=== PATIENT | male | born 1940 | race Caucasian/White ===

== ENCOUNTER 2016-12-23 08:59 | Day surgery (SDC) | payer MEDICARE, OTHER ==
[~2016-12-23 08:59] MED LIST: NACL 0.9% 1000 ML 1,000 ML IV SCH
--- NOTE | 2016-12-23 09:42 | Anesthesia Consultation ---
Anesthesia Consult and Med Hx Date of service: 12/23/16 - Airway Anesthetic Teeth Evaluation: Good (8 missing teeth in total), Chipped (one bottom front) ROM Head & Neck: Adequate Mental/Hyoid Distance: Adequate Mallampati Class: Class I Intubation Access Assessment: Probably Good - Pulmonary Exam CTA: Yes - Cardiac Exam Cardiac Exam: RRR - Pre-Operative Health Status ASA Pre-Surgery Classification: ASA3 Proposed Anesthetic Plan: MAC - Pulmonary Hx Smoking: Yes (stopped one year ago) Hx Asthma: Yes (inhaler as needed. Last used 3 months ago) - Cardiovascular System Hx Hypertension: Yes Hx Coronary Artery Disease: Yes (stent x4, 2 open heart surgery) - Central Nervous System Hx Seizures: Yes - Additional Comments Anesthesia Medical History Comments: h/o passing out. After passing out cracked skull and had piece of bone removed for 3 months. Plate in front of neck from neck surgery, ROM good. can extend neck well but not too far back.
--- NOTE | 2016-12-23 09:43 | Anesthesia Day of Surgery ---
Anesthesia Day of Surgery - Day of Surgery Patient Examined: Yes Patient H&P Reviewed: Yes Patient is NPO: Yes
[2016-12-23] MEDS ORDERED: WATER FOR IRRIG STERILE IR ONE (12:03)
[2016-12-23] MEDS ORDERED: WATER FOR IRRIG STERILE ONE (12:03)
[2016-12-23] MEDS ORDERED: AMIDATE IV ONE (12:04)
--- NOTE | 2016-12-23 12:47 | Short Stay Summary ---
Short Stay Documentation Date of service: 12/23/16 Narrative H&P: The patient presents for high risk screening colonoscopy due to a personal history of colon polyps. Last study was 10 years ago. - History Past Medical History: arthritis, hypertension, other (CHF, asthma) Past Surgical History: CABG, Other (joint surgeries, CABD) Social history: no significant social history - Allergies and Medications Current Medications: Allergies No Known Allergies Allergy (Verified 12/23/16 07:44) Home Medications Medication Instructions Recorded Confirmed Last Taken Type ALBUTEROL Inhaler 2 puff Q6HR PRN 12/23/16 12/23/16 12/22/16 History Ascorbic Acid/Ascorbate Ca 1 PO DAILY 12/23/16 12/22/16 History Aspirin [Adult Low Dose Aspirin EC] 1 tab PO DAILY 12/23/16 12/23/16 12/22/16 History Atrovent 0.03% NASAL 2 spray INNOSTRIL TID 12/23/16 12/23/16 12/22/16 History Docusate Calcium 1 tab PO DAILY 12/23/16 12/23/16 12/22/16 History Folic Acid 1 tab PO DAILY 12/23/16 12/23/16 12/22/16 History Furosemide 1 tab PO DAILY 12/23/16 12/23/16 12/23/16 History HYDROcodone/ACETAMINOPHEN 1 tab PO Q6HR PRN 12/23/16 12/23/16 12/22/16 History Keppra TAB PO BID 12/23/16 12/23/16 History Lisinopril 1 tab PO DAILY 12/23/16 12/23/16 12/23/16 History Metoprolol Tartrate 1 tab PO BID 12/23/16 12/23/16 12/23/16 History Morphine 1 cap PO Q12HR 12/23/16 12/23/16 12/20/16 History Multivitamin Tab 1 tab PO DAILY 12/23/16 12/23/16 12/22/16 History Nortriptyline 1 tab PO HS 12/23/16 12/23/16 12/21/16 History Potassium Chloride 1 caplet PO DAILY 12/23/16 12/23/16 12/22/16 History Ranitidine HCl [Zantac 150 MG TAB] 1 tab PO DAILY 12/23/16 12/23/16 12/22/16 History Senna 1 tab PO DAILY 12/23/16 12/23/16 12/22/16 History Zocor TAB 1 tab PO DAILY 12/23/16 12/23/16 12/22/16 History traZODone 2 tab PO HS 12/23/16 12/23/16 12/22/16 History Active Medications Sodium Chloride (Nacl 0.9% 1000 Ml) 1,000 mls @ 50 mls/hr IV DIRECT IVÁN Last Admin: 12/23/16 10:43 Dose: 50 mls/hr - Physical exam General appearance: no acute distress, well-nourished Integumentary: no rash, no growths, no abnormal pigmentation HEENT: Atraumatic, PERRLA, EOMI, Mucous membr. moist/pink Lungs: Clear to auscultation, Normal air movement Breasts: deferred Heart: Regular rate, Normal S1, Normal S2, No murmurs Gastrointestinal: normoactive bowel sounds, tenderness, distended, organomegaly , no hepatomegaly, no splenomegaly, no obese Male Genitourinary: deferred Rectal Exam: normal exam-external/orifice, normal rectal tone, no mass Neurological: Normal gait, Normal speech, Strength at 5/5 X4 ext, Normal tone, Sensation intact, Cranial nerves 3-12 NL - Brief post op/procedure progress note Date of procedure: 12/23/16 Findings: see dictated report Estimated blood loss: none Pathology: list (small transverse polyp, 2 descending colon polyps) Specimen disposition: to lab Condition: stable - Disposition Condition at discharge: Good Disposition: DC-01 TO HOME OR SELFCARE - Discharge Diagnoses (1) History of colon polyps Status: Acute Short Stay Discharge Plan Activity: other (no driving for 24 hours. No ASA/NSAIDs or Plavix for 7 days.) Weight Bearing Status: Full Weight Bearing Diet: regular Follow up with: MIO OSBORNE MD [Primary Care Provider] - 7 Days
--- NOTE | 2016-12-23 12:54 | Operative Report ---
Operative Report Operative Report: Date of procedure: 12/23/2016 Preprocedure diagnosis: History of colon polyps. Last study 10 years ago. Post procedure diagnosis: [Diminutive transverse colon polyp, 2 small descending colon polyps] Procedure: Colonoscopy to the cecum with cold forceps polypectomy of the transverse lesion and hot snare polypectomies of the descending colon polyps Endoscopist: Dr. Choudhary Anesthesia: Monitored anesthesia care per anesthesia department Estimated blood loss: 0 Medications: Monitored anesthesia care. See separate report by anesthesia for details. After careful discussion of the nature and purpose of the procedure as well as details of the technique risks benefits and alternatives the patient gave consent. Please see recent history and physical from the office. The patient was placed in the left lateral decubitus position and medicated per anesthesia. A rectal exam was performed sphincter tone was normal there were no masses palpable. The [employer] 570 scope was passed transanally and advanced under continuous direct vision without difficulty to the cecum. The colon was well prepared. The cecum was normal. The ascending colon was normal and on forward and retroflexed views. The transverse colon revealed a 4 mm sessile polyp. The polyp was removed with one bite of the cold forceps successfully and completely. There were 2 polyps approximately 6-7 mm in size, both sessile, in the descending colon. Both polyps are removed with snare cautery completely and retrieved by suction. There was no bleeding post polypectomies. Scattered diverticula were present in the sigmoid colon. The rectum was normal on forward and retroflexed views. The procedure was well-tolerated overall and the patient was observed in recovery. Conclusions: Diminutive transverse polyp and 2 small descending colon polyps. Mild sigmoid diverticulosis.. Plan: Pathology. Repeat colonoscopy in 3 years. Withhold Plavix and NSAIDs for 7 days. Signed electronically: Chapin Choudhary M.D.
--- NOTE | 2016-12-23 13:19 | Post Anesthesia Evaluation ---
- Post Anesthesia Evaluation Patient Participated: Yes Airway Patent: Yes Stable Respiratory Function: Yes Temp > 96.8F: Yes Pain Manageable: Yes Adequeate Hydration: Yes Anesthesia Complications: No
[2016-12-23 13:28] VITALS: BP 126/87
== END 2016-12-23 09:00 | disposition home or self-care (01) ==
LOC: GIO 08:59
PROVIDERS: ATTEND Internal Medicine Gastroenterology
DX: Z12.11 Encounter for screening for malignant neoplasm of colon (principal); D12.4 Benign neoplasm of descending colon; K63.5 Polyp of colon; K57.30 Diverticulosis of large intestine without perforation or abscess without bleeding; M19.90 Unspecified osteoarthritis, unspecified site; I25.10 Atherosclerotic heart disease of native coronary artery without angina pectoris; I11.0 Hypertensive heart disease with heart failure; I50.9 Heart failure, unspecified; J45.909 Unspecified asthma, uncomplicated; Z95.1 Presence of aortocoronary bypass graft; Z95.5 Presence of coronary angioplasty implant and graft; Z98.890 Other specified postprocedural states; Z79.82 Long term (current) use of aspirin; Z79.899 Other long term (current) drug therapy; Z87.19 Personal history of other diseases of the digestive system; Z87.891 Personal history of nicotine dependence
CPT/HCPCS: 88305